=== PATIENT | female | born 1940 | race Caucasian/White ===

== ENCOUNTER 2020-11-17 18:24 | Emergency (ER) | payer OTHER ==
--- OUTSIDE RECORDS SUMMARY | 2020-11-17 18:27 | XMS REPORT | Continuity of Care Document ---
:1940 Author Organization [facility] t Address [address] [place] [address] Care Team Providers Name Role Phone GRADY Primary Care Physician Unavailable CORTES Attending Clinician Unavailable GRADY Attending Clinician Unavailable Marina Hansen MD Attending Clinician Payers Payer Name Policy Type Policy Number Effective Expiration Source Date Date MEDICARE PART A AND B [id number] 2005 00:00:00 FEDE [id number] 2001 00:00:00 MEDICAREMEDICARE PART [id number] 2005 Xu Lai AND 00:00:00 Mormon [id number] 2004- [place], [place] [id number] 2001 Bryce lemus [facility] Met katina itary Problems Condition Condition Condition Status Onset Resolution Last Treating Co mments Source Name Details Category Date Date Treatment Clinician Date 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 lemus malfunctio malfunctio 07-21 Me thodi n n 00:00: st 00 Arrhythmia Arrhythmia Disease Active 2016-06 [place] requiring requiring -17 Meth soledad replacemen replacemen 00:00: st t of t of 00 cardiac cardiac pacemaker pacemaker Allergies, Adverse Reactions, Alerts Allergy Allergy Status Severity Reaction(s) Onset Inactive Treating Comm ents Source Name Type Date Date Clinician Codeine Propensi Active Itching 2016-06 [place] ty to 07-13 Methodi adverse 00:00: st reaction 00 s to drug Penicill Propensi Active Hives 2016-06 [place] ty to 07-13 Methodi adverse 00:00: st reaction 00 s to drug Shellfis Propensi Active Rash 2016-06 [place] h ty to 07-13 Methodi Derived adverse 00:00: st reaction 00 s to drug Social History Social Habit Start Date Stop Date Quantity Comments Source Sex Assigned At [birth year] [place] ethodist 00:00:00 00:00:00 Medications Ordered Filled Start Stop Current Ordering Indication Dosage Frequency Signature Comments Components Source Medication Medication Date Date Medication? Clinician (SIG) Name Name rivaroxaban 2016-06 Yes 20mg QD Take 20 mg Reid (XARELTO) 1-27 by mouth Method i 20 mg 10:59: daily. st tablet 37 cyanocobala 2016-06 Yes 1000ug QD Take 1,000 Reid min 1000 1-27 mcg by Methodi MCG tablet 10:59: mouth st 37 daily. cholecalcif 2016-06 Yes 2000U QD Take 2,000 Reid joo, 1-27 Units by Methodi vitamin D3, 10:59: mouth st (VITAMIN 37 daily. D3) 2,000 unit capsule capsule melatonin 3 2016-06 Yes QD Take by Bryce ston mg tablet 1-27 mouth Methodi 10:59: nightly. st 37 linaclotide 2016-06 Yes 145ug QD Take 145 [place] (LINZESS) 1-27 mcg by Methodi 145 mcg 10:59: mouth st capsule 37 daily before breakfast. Procedures This patient has no known procedures. Plan of Care Planned Activity Planned Date Details Comments Source Future Scheduled 2021-01-25 INFLUENZA VACCINE Merline n Mormon Test 00:00:00 [code = INFLUENZA VACCINE] Future Scheduled 1990 SHINGLES VACCINES [place] n Mormon Test 00:00:00 (#1) [code = SHINGLES VACCINES (#1)] Future Scheduled 1952 COVID-19 VACCINE (1) Bryce ston Mormon Test 00:00:00 [code = COVID-19 VACCINE (1)] Encounters Start End Encounter Admission Attending Care Care Encounter Source Date/Time Date/Time Type Type Clinicians Facility Department ID 2020-12-30 2020-12-30 Outpatient [facility] [id number] 00:00:00 00:00:00 Milton lieberman 2020-12-30 2020-12-30 Outpatient SALENA RASMUSSEN MDA MDA [id number] 00:00:00 00:00:00 MANOHAR lieberman 2019-12-31 2019-12-31 Outpatient IAN [place] MDA MDA [id number] 07:07:27 23:59:00 Milton lieberman 2019-12-31 2019-12-31 Outpatient SALENA RASMUSSEN MDA MDA [id number] 08:37:12 08:37:12 MANOHAR lieberman 2019-12-17 2019-12-17 Outpatient SALENA RASMUSSEN MDA MDA [id number] 00:00:00 00:00:00 MANOHAR lieberman 2019-12-17 2019-12-17 Outpatient IAN [facility] MDA MDA [id number] 00:00:00 00:00:00 Milton lieberman 2019-11-21 2019-11-21 Outpatient [facility] [id number] 067 [place] 00:00:00 00:00:00 ELYSSA [address] 2019-08-23 2019-08-23 Outpatient [place] [id number] 898 [place] 00:00:00 00:00:00 ELYSSA [address] Results This patient has no known results.
--- NOTE | 2020-11-17 19:34 | RAD REPORT ---
EXAM DESCRIPTION: CT - CTHCSPWOC - 11/17/2020 7:22 pm CLINICAL HISTORY: Trauma, head and neck injury. PAIN COMPARISON: No comparisons TECHNIQUE: Axial 5 mm thick images of the head were obtained. Axial 2 mm thick images of the cervical spine were obtained with sagittal and coronal reconstruction images generated and reviewed. All CT scans are performed using dose optimization technique as appropriate and may include automated exposure control or mA/KV adjustment according to patient size. FINDINGS: CT HEAD WITHOUT CONTRAST: No acute hemorrhage, hydrocephalus or extra-axial collection is identified.No areas of brain edema or midline shift. The paranasal sinuses and mastoids are clear.The calvarium is intact. Bilateral frontal scalp hematom as. CT CERVICAL SPINE WITHOUT CONTRAST: No fracture or subluxation.Moderate spondylosis is present at C5-6.No prevertebral soft tissues swell ing is identified. IMPRESSION: No acute intracranial or cervical spine findings. Moderate C5-6 spondylosis.
--- NOTE | 2020-11-17 19:37 | RAD REPORT ---
EXAM DESCRIPTION: CT - CTFB CLINICAL HISTORY: FACIAL PAIN Trauma, facial pain and injury. COMPARISON: No comparisons TECHNIQUE: Axial 2 mm thick images of the face were obtained with sagittal and coronal reconstructio n images. All CT scans are performed using dose optimization technique as appropriate and may include automated exposure control or mA/KV adjustment according to patient size. FINDINGS: Mild right-sided facial bone fracture is suspected.No additional facial bone fracture seen .The mandible is intact. The globes and orbital contents are grossly unremarkable.The paranasal sinuses and mastoids are clear . Bilateral frontal scalp hematomas. IMPRESSION: Mild predominately right-sided nasal bone fracture.
--- NOTE | 2020-11-17 20:18 | EDPHYS ---
Physician Documentation [facility] Name: Philomena Webster Age: 80 yrs Sex: Female : 1940 Arrival Date: 11/17/2020 Time: 18:26 Bed 24 Private MD: ED Physician Andrea Sanders HPI: 11/17 19:06 This 80 yrs old Female presents to ER via Ambulatory with complaints of Head pm1 Injury-Adult, Neck Pain, <24hrs Old, Fall Injury. 19:06 The patient or guardian reports swelling, tenderness, to forehead, swelling to bridge pm1 of nose. The complaints affect the forehead and nose. Context of injury: The problem was sustained at home, resulted from tripped on rolled up carpet and landed on her face. Onset: The symptoms/episode began/occurred just prior to arrival. Associated signs and symptoms: Pertinent positives: neck pain, Pertinent negatives: the patient has not experienced a loss of conciousness. Severity of symptoms: in the emergency department the symptoms. The patient has not experienced similar symptoms in the past. The patient has not recently seen a physician. Historical: - Allergies: 18:40 Codeine; ca1 18:40 PENICILLINS; ca1 18:40 SHELLFISH; ca1 - Home Meds: 18:40 Xarelto 20 mg Oral tab 1 tab once daily [Active]; Synthroid 112 mcg oral tab 1 tab once ca1 daily [Active]; 18:41 Linzess 145 mcg oral cap 1 cap once daily [Active]; metoprolol tartrate 25 mg Oral tab ca1 1 tab 2 times per day [Active]; magnesium oxide 500 mg Oral tab [Active]; - PMHx: 18:40 Atrial Fib; Hypothyroidism; non hodgekins lymphoma; Pernicious Anemia; ca1 - PSHx: 18:40 hip surgery; ca1 - Immunization history:: Client reports receiving the 2nd dose of the Covid vaccine, Client reports receiving the 1st dose of the Covid vaccine, Last tetanus immunization: unknown, Pneumococcal vaccine is up to date, Flu vaccine status is unknown. - Social history:: Smoking status: Patient denies any tobacco usage or history of. - Immunization history: Last tetanus immunization: unknown. ROS: 19:06 Constitutional: Negative for fever, chills, and weight loss, Eyes: Negative for injury, pm1 pain, redness, and discharge. 19:06 Cardiovascular: Negative for chest pain, palpitations, and edema, Respiratory: Negative for shortness of breath, cough, wheezing, and pleuritic chest pain, Abdomen/GI: Negative for abdominal pain, nausea, vomiting, diarrhea, and constipation, Back: Negative for injury and pain, MS/Extremity: Negative for injury and deformity, Skin: Negative for injury, rash, and discoloration. 19:06 ENT: Positive for nose bleed, Negative for ear pain. 19:06 Neck: Positive for pain at rest. 19:06 Neuro: Positive for headache. Exam: 19:06 Constitutional: This is a well developed, well nourished patient who is awake, alert, pm1 and in no acute distress. 19:06 Eyes: Pupils equal round and reactive to light, extra-ocular motions intact. Lids and lashes normal. Conjunctiva and sclera are non-icteric and not injected. Cornea within normal limits. Periorbital areas with no swelling, redness, or edema. 19:06 Neck: Trachea midline, no thyromegaly or masses palpated, and no cervical lymphadenopathy. Supple, full range of motion without nuchal rigidity, or vertebral point tenderness. No Meningismus. Chest/axilla: Normal chest wall appearance and motion. Nontender with no deformity. No lesions are appreciated. 19:06 Skin: Warm, dry with normal turgor. Normal color with no rashes, no lesions, and no evidence of cellulitis. MS/ Extremity: Pulses equal, no cyanosis. Neurovascular intact. Full, normal range of motion. 19:06 Head/face: Noted is no obvious of injury or deformity except contusion, that is superficial, of the forehead and bridge of nose. 19:06 ENT: Ear canal(s): are normal, TM's: are normal, Nose: Nasal septum: is midline, no septal hematoma appreciated, bleeding, is not appreciated, clotted blood, in right nare, nasal drainage, is not appreciated. 19:06 Cardiovascular: Exam negative for acute changes, Rate: normal, Rhythm: regular, Pulses: no pulse deficits are appreciated. 19:06 Respiratory: Exam negative for acute changes, the patient does not display signs of respiratory distress, Respirations: normal. 19:06 Abdomen/GI: Exam negative for acute changes, Inspection: abdomen appears normal, Palpation: abdomen is soft and non-tender, in all quadrants. 19:06 Back: Exam negative for acute changes, pain, is absent. 19:06 Neuro: Exam negative for acute changes, Orientation: is normal, Mentation: is normal, Motor: is normal, moves all fours, Sensation: is normal, no obvious gross deficits. Vital Signs: 18:36 BP 146 / 64; Pulse 69; Resp 16 S; Temp 98.1; Pulse Ox 98% on R/A; Weight 89.36 kg (R); ca1 Height 5 ft. 7 in. (170.18 cm) (R); Pain 8/10; 18:36 Body Mass Index 30.85 (89.36 kg, 170.18 cm) ca1 [place] Coma Score: 18:36 Eye Response: spontaneous(4). Verbal Response: oriented(5). Motor Response: obeys ca1 commands(6). Total: 15. 18:40 Eye Response: spontaneous(4). Verbal Response: oriented(5). Motor Response: obeys ca1 commands(6). Total: 15. 19:06 Eye Response: spontaneous(4). Verbal Response: oriented(5). Motor Response: obeys pm1 commands(6). Total: 15. Trauma Score (Adult): 18:40 Eye Response: spontaneous(1); Verbal Response: oriented(1); Motor Response: obeys ca1 commands(2); Systolic BP: > 89 mm Hg(4); Respiratory Rate: 10 to 29 per min(4); Shila Score: 15; Trauma Score: 12 MDM: 18:52 Patient medically screened. pm1 20:15 Data reviewed: vital signs. Data interpreted: Pulse oximetry: on room air is 98 %. pm1 Interpretation: normal. Counseling: I had a detailed discussion with the patient and/or guardian regarding: the historical points, exam findings, and any diagnostic results supporting the discharge/admit diagnosis, radiology results, the need for outpatient follow up, to return to the emergency department if symptoms worsen or persist or if there are any questions or concerns that arise at home. 11/17 18:56 Order name: CT Head C Spine; Complete Time: 19:45 pm1 11/17 18:56 Order name: CT Facial Bones W/O Con; Complete Time: 19:45 pm1 11/17 18:56 Order name: C-Collar; Complete Time: 18:58 pm1 11/17 20:15 Order name: Ice pack; Complete Time: 20:16 pm1 Administered Medications: 20:34 Drug: Tylenol 650 mg Route: PO; zb 20:40 Follow up: Response: Medication administered at discharge. zb Disposition: 11/18 09:57 Co-signature as Attending Physician, Andrea Sanders MD I agree with the assessment and rufino plan of care. Disposition: 11/17/20 20:17 Discharged to Home. Impression: Fracture of nasal bones, Abrasion of scalp, Fall on same level from slipping, tripping and stumbling, Forehead contusion. - Condition is Stable. - Discharge Instructions: Abrasion, Fall Prevention in the Home, Nasal Fracture. - Medication Reconciliation Form, Thank You Letter, Antibiotic Education, Prescription Opioid Use form. - Follow up: Emergency Department; When: As needed; Reason: Worsening of condition. Follow up: Private Physician; When: 2 - 3 days; Reason: Recheck today's complaints, Continuance of care, Re-evaluation by your physician. - Problem is new. - Symptoms have improved. Signatures: Dispatcher [employer] EDMS Andrea Sanders MD MD cha Marinas, Patrick, HOP PICKER HOP PICKER pm1 Tanvi Kent RN RN ca1 Brown, Zipporah, RN RN zsandy Corrections: (The following items were deleted from the chart) 11/17 20:50 20:17 11/17/2020 20:17 Discharged to Home. Impression: Fracture of nasal bones; zb Abrasion of scalp; Fall on same level from slipping, tripping and stumbling; Forehead contusion. Condition is Stable. Forms are Medication Reconciliation Form, Thank You Letter, Antibiotic Education, Prescription Opioid Use. Follow up: Emergency Department; When: As needed; Reason: Worsening of condition. Follow up: Private Physician; When: 2 - 3 days; Reason: Recheck today's complaints, Continuance of care, Re-evaluation by your physician. Problem is new. Symptoms have improved. pm1
--- NOTE | 2020-11-17 20:18 | ER ---
Nurse's Notes [facility] Name: Philomena Webster Age: 80 yrs Sex: Female : 1940 Arrival Date: 11/17/2020 Time: 18:26 Bed 24 Private MD: Diagnosis: Fracture of nasal bones;Abrasion of scalp;Fall on same level from slipping, tripping and stumbling;Forehead contusion Presentation: 11/17 18:36 Chief complaint: Patient states: Tripped and fell 30 minutes [employer]. Hit head. Bruising ca1 and swelling on R forehead. Denies LOC. Pt on Xarelto. Coronavirus screen: Client denies travel out of the [place] in the last 14 days. At this time, the client does not indicate any symptoms associated with coronavirus-19. Ebola Screen: Patient negative for fever greater than or equal to 101.5 degrees Fahrenheit, and additional compatible Ebola Virus Disease symptoms Patient denies exposure to infectious person. Patient denies travel to an Ebola-affected area in the 21 days before illness onset. No symptoms or risks identified at this time. Mechanism of Injury: resulted from a fall, from a standing position. Initial Sepsis Screen: Does the patient meet any 2 criteria? No. Patient's initial sepsis screen is negative. Does the patient have a suspected source of infection? No. Patient's initial sepsis screen is negative. Risk Assessment: Do you want to hurt yourself or someone else? Patient reports no desire to harm self or others. 18:36 Method Of Arrival: Ambulatory ca1 18:36 Acuity: CHRISTI 2 ca1 18:36 Onset of symptoms was November 17, 2020 at 18:00. ca1 18:40 Care prior to arrival: None. Trauma event details: Injury occurred in the county [place] [address], Injury occurred: at home. Injury occurred: November 17, 2020 Injury occurred at: 18:00. Triage Assessment: 19:00 General: Appears uncomfortable, Behavior is calm, cooperative, appropriate for age. zb Pain: Complains of pain in forehead and back of neck Pain does not radiate. Pain currently is 6 out of 10 on a pain scale. Quality of pain is described as aching, numb, Pain began suddenly, 1 hour ago. Is continuous. Neuro: Level of Consciousness is awake, alert, obeys commands, Oriented to person, place, time, situation, Reports headache frontal area, Denies weakness blurred vision dizziness, difficulty swallowing, paresthesias numbness photophobia. Cardiovascular: Patient's skin is warm and dry. Respiratory: Airway is patent Respiratory effort is even, unlabored, Respiratory pattern is regular, symmetrical. GI: Abdomen is flat. : No deficits noted. Derm: Bruising that is bright red, on forehead. Musculoskeletal: Swelling present in forehead. Trauma Activation: Alert Physician: ED Physician; Name: ; Notified At: ; Arrived At: Physician: General Surgeon; Name: ; Notified At: ; Arrived At: Physician: Radiology; Name: ; Notified At: ; Arrived At: Physician: Respiratory; Name: ; Notified At: ; Arrived At: Physician: Lab; Name: ; Notified At: ; Arrived At: Historical: - Allergies: 18:40 Codeine; ca1 18:40 PENICILLINS; ca1 18:40 SHELLFISH; ca1 - Home Meds: 18:40 Xarelto 20 mg Oral tab 1 tab once daily [Active]; Synthroid 112 mcg oral tab 1 tab once ca1 daily [Active]; 18:41 Linzess 145 mcg oral cap 1 cap once daily [Active]; metoprolol tartrate 25 mg Oral tab ca1 1 tab 2 times per day [Active]; magnesium oxide 500 mg Oral tab [Active]; - PMHx: 18:40 Atrial Fib; Hypothyroidism; non hodgekins lymphoma; Pernicious Anemia; ca1 - PSHx: 18:40 hip surgery; ca1 - Immunization history:: Client reports receiving the 2nd dose of the Covid vaccine, Client reports receiving the 1st dose of the Covid vaccine, Last tetanus immunization: unknown, Pneumococcal vaccine is up to date, Flu vaccine status is unknown. - Social history:: Smoking status: Patient denies any tobacco usage or history of. - Immunization history: Last tetanus immunization: unknown. Screenin:02 Abuse screen: Denies threats or abuse. Denies injuries from another. Tuberculosis zb screening: No symptoms or risk factors identified. Fall risk At risk due to injury, age, prior history of falls, Intervention for positive screen: side rails up. 19:05 Nutritional screening: No deficits noted. Fall Risk Fall in past 12 months (25 points). zb No secondary diagnosis (0 pts). No IV (0 pts). Ambulatory Aid- None/Bed Rest/Nurse Assist (0 pts). Gait- Normal/Bed Rest/Wheelchair (0 pts) Mental Status- Oriented to own ability (0 pts). Total Lee Fall Scale indicates Low Risk Score (25-44 pts). Fall prevention measures have been instituted. Side Rails Up X 2 Placed close to Nursing Station Frequent Obs/Assesments occuring As available Patient and Family Educated on Fall Prevention Program and strategies. Primary Survey: 18:40 NO uncontrolled hemorrhage observed. A: The patient is alert. Airway: patent. ca1 Breathing/Chest: Respiratory pattern: regular, Respiratory effort: spontaneous, unlabored, Breath sounds: clear, bilaterally. Chest inspection: symmetrical rise and fall of the chest. Circulation: Heart tones present. Pulses: palpable bilateral radial, brachial, femoral, popliteal, posterior tibial and and dorsalis pedis arteries.. Skin color: pink, Skin temperature: warm, dry. Disability Alert. Exposure/Environment: All clothing and personal items were removed. Forensic evidence collection is not deemed to be indicated at this time. Items placed in patient belonging bag. There is no evidence of uncontrolled external bleeding. Obvious injury(ies) are noted at this time: bruising and swelling on R side of forehead, abrasion on R cheek. 19:05 Reassessment Breathing/Chest Respiratory pattern Regular Respiratory effort Spontaneous zb Circulation Heart rhythm Sinus rhythm Heart tones Present Pulses Palpable Color [place] Temperature Warm. Assessment: 18:52 Reassessment:. ca1 20:00 Reassessment: Patient appears in no apparent distress at this time. Patient and/or zb family updated on plan of care and expected duration. Pain level reassessed. Patient is alert, oriented x 3, equal unlabored respirations, skin warm/dry/pink. C- collar removed. 20:50 Reassessment: Patient appears in no apparent distress at this time. Patient and/or zb family updated on plan of care and expected duration. Pain level reassessed. Patient is alert, oriented x 3, equal unlabored respirations, skin warm/dry/pink. patient gait even and stable. Vital Signs: 18:36 BP 146 / 64; Pulse 69; Resp 16 S; Temp 98.1; Pulse Ox 98% on R/A; Weight 89.36 kg (R); ca1 Height 5 ft. 7 in. (170.18 cm) (R); Pain 8/10; 18:36 Body Mass Index 30.85 (89.36 kg, 170.18 cm) ca1 [place] Coma Score: 18:36 Eye Response: spontaneous(4). Verbal Response: oriented(5). Motor Response: obeys ca1 commands(6). Total: 15. 18:40 Eye Response: spontaneous(4). Verbal Response: oriented(5). Motor Response: obeys ca1 commands(6). Total: 15. 19:06 Eye Response: spontaneous(4). Verbal Response: oriented(5). Motor Response: obeys pm1 commands(6). Total: 15. Trauma Score (Adult): 18:40 Eye Response: spontaneous(1); Verbal Response: oriented(1); Motor Response: obeys ca1 commands(2); Systolic BP: > 89 mm Hg(4); Respiratory Rate: 10 to 29 per min(4); [place] Score: 15; Trauma Score: 12 ED Course: 18:26 Patient arrived in ED. as 18:38 Triage completed. ca1 18:40 Patient maintains SpO2 saturation greater than 95% on room air. ca1 18:40 Thermoregulation: warm blanket given to patient. ca1 18:40 Patient did not have IV access during this emergency room visit. zb 18:41 Arm band placed on right wrist. ca1 18:52 Chance Conner NP is PHCP. pm1 18:52 Andrea Sanders MD is Attending Physician. pm1 18:58 Kellee Farmer, LAURA is Primary Nurse. zb 19:04 Patient has correct armband on for positive identification. Bed in low position. Call zb light in reach. Pulse ox on. NIBP on. Door closed. Noise minimized. 19:22 CT Head C Spine In Process Unspecified. EDMS 19:22 CT Facial Bones W/O Con In Process Unspecified. EDMS 11/18 00:44 No provider procedures requiring assistance completed. zb Administered Medications: 11/17 20:34 Drug: Tylenol 650 mg Route: PO; zb 20:40 Follow up: Response: Medication administered at discharge. zb Intake: 18:51 PO: 0ml; Total: 0ml. ca1 Outcome: 20:00 Discharge instructions given to patient, Instructed on discharge instructions, follow zb up and referral plans. Demonstrated understanding of instructions, follow-up care. 20:17 Discharge ordered by MD. pm1 20:50 Patient left the ED. zb 20:50 Discharged to home ambulatory. zb 20:50 Condition: stable zb 20:50 Patient's length of stay was not longer than 2 hours. Signatures: Dispatcher [employer] EDInessa Chavez Patrick, NP PEWTER FABRICATOR pm1 Tanvi Kent RN RN ca1 Brown, Zipporah, RN RN zb Corrections: (The following items were deleted from the chart) 11/18 00:45 00:43 Patient's length of stay was not longer than 2 hours. zb zb 00:45 00:43 Condition: stable zb zb
[2020-11-17] MEDS ORDERED: ACETAMINOPHEN 325 MG TABLET ONE (20:39)
[2020-11-17 21:25] VITALS: BP 146/64; TEMP 98.1; O2SAT 98
== END 2020-11-17 20:50 | disposition home or self-care (01) ==
LOC: ER 18:24
DX: S02.2XXA Fracture of nasal bones, initial encounter for closed fracture (principal); S00.01XA Abrasion of scalp, initial encounter; W01.0XXA Fall on same level from slipping, tripping and stumbling without subsequent striking against object, initial encounter; Y93.01 Activity, walking, marching and hiking; Y92.009 Unspecified place in unspecified non-institutional (private) residence as the place of occurrence of the external cause; E03.9 Hypothyroidism, unspecified; I48.91 Unspecified atrial fibrillation; D51.0 Vitamin B12 deficiency anemia due to intrinsic factor deficiency; Z79.01 Long term (current) use of anticoagulants; Z88.0 Allergy status to penicillin; Z88.5 Allergy status to narcotic agent; Z91.013 Allergy to seafood
CPT/HCPCS: 70450; 70486; 72125; 76377; 99284; G0390